=== PATIENT | female | born 1965 | race Two or more races ===

== ENCOUNTER 2016-10-18 04:49 | Emergency (ER) | payer BC, OTHER ==
[~2016-10-18] VITALS: Ht 157.5 cm; Wt 98.9 kg
[2016-10-18 04:58] VITALS: BP 151/102
== END 2016-10-18 05:17 | disposition left against medical advice (07) ==
LOC: ER 04:50
DX: M54.2 Cervicalgia (principal); Z53.21 Procedure and treatment not carried out due to patient leaving prior to being seen by health care provider
CPT/HCPCS: 93005

== ENCOUNTER 2016-10-18 08:20 | Emergency (ER) | payer BC ==
[~2016-10-18] VITALS: Ht 157.5 cm; Wt 99.8 kg
[2016-10-18 08:25] VITALS: BP 150/83
== END 2016-10-18 18:21 | disposition home or self-care (01) ==
LOC: ER 08:20
DX: M50.30 Other cervical disc degeneration, unspecified cervical region (principal); M54.12 Radiculopathy, cervical region; R51 Headache
CPT/HCPCS: 70450; 72125; 93005; 99284; J7030